=== PATIENT | male | born 1960 | race Caucasian/White ===

== ENCOUNTER 2017-09-15 13:14 | Emergency (ER) | payer SELFPAY ==
[~2017-09-15] VITALS: Ht 175.2 cm; Wt 83.9 kg
[~2017-09-15 13:14] MED LIST: KEFLEX500 MG PO; MOTRIN800 MG PO
[2017-09-15 13:45] LABS: BASO % 0.5 % (0.0-1.0); EOS # 0.1 10*3/uL (0.0-0.4); EOS % 0.6 % (1.0-4.0); HEMATOCRIT 40.9 % (42.0-52.0); HEMOGLOBIN 14.1 g/dl (14.0-18.0); LYMPH # 0.9 10*3/uL (1.3-4.4); LYMPH % 10.9 % (27.0-41.0); MEAN CELL VOLUME 99.8 fl (80.0-94.0); MEAN CORPUSCULAR HGB 34.4 pg (27.0-31.0); MEAN CORPUSCULAR HGB CONC 34.5 g/dl (33.0-37.0); MEAN PLATELET VOLUME 10.6 fl (9.6-12.3); MONO # 0.6 10*3/uL (0.1-1.0); MONO % 7.9 % (3.0-9.0); NEUT # 6.4 10*3/uL (2.3-7.9); NEUT % 79.7 % (47.0-73.0); PLATELET COUNT AUTOMATED 177 10*3/uL (130-400); RED CELL DISTRI WIDTH 12.4 % (0-14.5)
[2017-09-15 13:58] LABS: ALBUMIN 2.6 gm/dl (3.1-4.5); ALKALINE PHOSPHATASE 70 U/L (45-117); BUN 14 mg/dl (7-24); CHLORIDE 98 mmol/L (98-107); CREATININE 1.04 mg/dL (0.70-1.30); POTASSIUM 4.3 mmol/L (3.5-5.1); SGOT/AST 39 IU/L (3-35); SGPT/ALT 42 U/L (12-78); SODIUM 135 mmol/L (136-145); TOTAL PROTEIN 7.5 gm/dL (6.4-8.2)
[2017-09-15] MEDS ORDERED: ZITHROMAX250 MG PO (14:52)
[2017-09-15] MEDS ORDERED: ROBITUSSIN DM 105 ML PO (14:52)
[2017-09-15] MEDS ORDERED: PREDNISONE10 MG PO (14:52)
== END 2017-09-15 14:58 | disposition home or self-care (01) ==
LOC: ED 13:14
PROVIDERS: Nurse Practitioner Family
DX: J18.9 Pneumonia, unspecified organism (principal); F17.200 Nicotine dependence, unspecified, uncomplicated; F10.20 Alcohol dependence, uncomplicated; J06.9 Acute upper respiratory infection, unspecified

== ENCOUNTER 2017-10-08 10:08 | Emergency (ER) | payer SELFPAY ==
[~2017-10-08] VITALS: Ht 175.2 cm; Wt 81.6 kg
--- NOTE | ~2017-10-08 | EKG ---
[place], [place] ELECTROCARDIOGRAM REPORT NAME: SHIRIN SCHREIBER UNIT #: [id number] ROOM: DOCTOR: LIVIA ALDRICH MD BIRTHDATE: [birth year] DOS: 10/08/2017 TIME: 1051 hours. Normal sinus rhythm at 91 beats per minute. Poor R-wave progression is noted. Left ventricular hypertrophy with repolarization abnormality. Possible lateral wall ischemia. An abnormal ECG. No previous tracing is available for comparison. LIVIA ALDRICH MD CM:EKGRPT:ELECTROCARDIOGRAM REPORT [id number] LIVIA ALDRICH MD
[~2017-10-08 10:08] MED LIST changes: +PREDNISONE10 MG PO; +ROBITUSSIN DM 105 ML PO; +ZITHROMAX250 MG PO
[2017-10-08 10:38] LABS: BASO % 0.6 % (0.0-1.0); EOS # 0.3 10*3/uL (0.0-0.4); EOS % 4.5 % (1.0-4.0); HEMATOCRIT 43.7 % (42.0-52.0); HEMOGLOBIN 14.3 g/dl (14.0-18.0); LYMPH # 1.4 10*3/uL (1.3-4.4); LYMPH % 20.7 % (27.0-41.0); MEAN CELL VOLUME 101.2 fl (80.0-94.0); MEAN CORPUSCULAR HGB 33.1 pg (27.0-31.0); MEAN CORPUSCULAR HGB CONC 32.7 g/dl (33.0-37.0); MEAN PLATELET VOLUME 9.8 fl (9.6-12.3); MONO # 0.5 10*3/uL (0.1-1.0); MONO % 6.7 % (3.0-9.0); NEUT # 4.6 10*3/uL (2.3-7.9); NEUT % 67.2 % (47.0-73.0); PLATELET COUNT AUTOMATED 202 10*3/uL (130-400); RED BLOOD COUNT 4.32 10*6/uL (4.50-5.90); RED CELL DISTRI WIDTH 12.7 % (0-14.5); WHITE BLOOD COUNT 6.8 10*3/uL (4.8-10.8)
[2017-10-08 10:52] LABS: ALBUMIN 3.2 gm/dl (3.1-4.5); ALKALINE PHOSPHATASE 105 U/L (45-117); BUN 12 mg/dl (7-24); CHLORIDE 108 mmol/L (98-107); CREATININE 0.95 mg/dL (0.70-1.30); POTASSIUM 4.5 mmol/L (3.5-5.1); SGOT/AST 18 IU/L (3-35); SGPT/ALT 27 U/L (12-78); SODIUM 143 mmol/L (136-145); TOTAL PROTEIN 7.3 gm/dL (6.4-8.2)
[2017-10-08] MEDS ORDERED: ADALAT10 MG PO (11:20)
== END 2017-10-08 12:34 | disposition home or self-care (01) ==
LOC: ED 10:08
PROVIDERS: Nurse Practitioner Family
DX: I73.00 Raynaud's syndrome without gangrene (principal); R03.0 Elevated blood-pressure reading, without diagnosis of hypertension; F17.200 Nicotine dependence, unspecified, uncomplicated; Z79.899 Other long term (current) drug therapy

== ENCOUNTER 2017-10-11 15:33 | Emergency (ER) | payer SELFPAY ==
[~2017-10-11] VITALS: Ht 175.2 cm; Wt 81.6 kg
[~2017-10-11 15:33] MED LIST changes: +ADALAT10 MG PO
[2017-10-11] MEDS ORDERED: ASPIRIN325 MG PO (17:48)
[2017-10-11] MEDS ORDERED: NIFEDIPINE ER60 M1 PO (17:48)
== END 2017-10-11 18:28 | disposition home or self-care (01) ==
LOC: EDSTATUS 15:33 → ED 15:34
DX: I73.89 Other specified peripheral vascular diseases (principal); F17.200 Nicotine dependence, unspecified, uncomplicated

== ENCOUNTER 2018-04-11 16:56 | Emergency (ER) | payer BC ==
[~2018-04-11] VITALS: Ht 175.2 cm; Wt 83.9 kg
[~2018-04-11 16:56] MED LIST changes: +ASPIRIN325 MG PO; +NIFEDIPINE ER60 M1 PO
[2018-04-11] MEDS ORDERED: NORCO 10-325 T1 EACH PO (17:33)
[2018-04-11] MEDS ORDERED: NIFEDIPINE30 MG PO (17:33)
== END 2018-04-11 17:25 | disposition home or self-care (01) ==
LOC: ED 16:56
DX: I73.89 Other specified peripheral vascular diseases (principal)

== ENCOUNTER 2019-05-21 11:20 | Emergency (ER) | payer SELFPAY ==
[~2019-05-21] VITALS: Wt 83.9 kg
[~2019-05-21 11:20] MED LIST changes: +CYCLOBENZAPRINE5 M3 PO; +KETOROLAC10 MG PO; +NIFEDIPINE30 MG PO; +NORCO 10-325 T1 EACH PO
[2019-05-21] MEDS ORDERED: ZITHROMAX250 MG PO (13:42)
[2019-05-21] MEDS ORDERED: PROAIR HFA8.5 GM INH (13:42)
[2019-05-21] MEDS ORDERED: PREDNISONE50 MG PO (13:42)
== END 2019-05-21 13:43 | disposition home or self-care (01) ==
LOC: ED 11:20
DX: J20.9 Acute bronchitis, unspecified (principal); F17.200 Nicotine dependence, unspecified, uncomplicated

== ENCOUNTER 2019-11-07 13:24 | Emergency (ER) | payer SELFPAY ==
[~2019-11-07] VITALS: Ht 175.2 cm; Wt 83.9 kg
[~2019-11-07 13:24] MED LIST changes: +PREDNISONE50 MG PO; +PROAIR HFA8.5 GM INH
[2019-11-07] MEDS ORDERED: ROBAXIN-750750 MG PO (16:00)
[2019-11-07] MEDS ORDERED: IBUPROFEN600 MG PO (16:00)
== END 2019-11-07 16:02 | disposition home or self-care (01) ==
LOC: ED 13:24
DX: M43.6 Torticollis (principal); F17.200 Nicotine dependence, unspecified, uncomplicated

== ENCOUNTER 2021-04-22 12:01 | Emergency (ER) | payer OTHER ==
[~2021-04-22] VITALS: Ht 172.7 cm; Wt 83.9 kg
[~2021-04-22 12:01] MED LIST changes: +IBUPROFEN600 MG PO; +ROBAXIN-750750 MG PO
[2021-04-22] MEDS ORDERED: MEDROL DOSEPAK4 MG PO (14:25)
== END 2021-04-22 14:29 | disposition home or self-care (01) ==
LOC: ED 12:01
DX: M54.2 Cervicalgia (principal); Z79.899 Other long term (current) drug therapy

== ENCOUNTER → 2021-12-04 | Outpatient (CLI) | payer OTHER ==
[~2021-12-04] MED LIST changes: +MEDROL DOSEPAK4 MG PO
== END | disposition home or self-care (01) ==
LOC: COVID19 15:38
PROVIDERS: ATTEND Family Medicine
DX: Z11.52 Encounter for screening for COVID-19 (principal)

== ENCOUNTER → 2021-12-10 | Outpatient (CLI) | payer OTHER | END | disposition home or self-care (01) | LOC: COVID19 15:11 | PROVIDERS: ATTEND Internal Medicine | DX: Z20.822 Contact with and (suspected) exposure to COVID-19 (principal) ==

== ENCOUNTER 2021-12-11 17:53 | Emergency (ER) | payer BC, OTHER ==
[~2021-12-11] VITALS: Ht 175.2 cm; Wt 81.6 kg
== END 2021-12-11 20:07 | disposition home or self-care (01) ==
LOC: ED 17:53
DX: S40.021A Contusion of right upper arm, initial encounter (principal); S51.811A Laceration without foreign body of right forearm, initial encounter; W18.39XA Other fall on same level, initial encounter; Y93.89 Activity, other specified; Y92.89 Other specified places as the place of occurrence of the external cause; Y99.8 Other external cause status

== ENCOUNTER → 2025-01-14 | Outpatient (CLI) | payer OTHER ==
[~2025-01-14] MED LIST changes: +LISINOPRIL40 MG PO; +VIBRA-TAB100 MG PO
== END | disposition home or self-care (01) ==
LOC: RESCLI 05:04
PROVIDERS: ATTEND Internal Medicine
DX: I10 Essential (primary) hypertension (principal); J44.9 Chronic obstructive pulmonary disease, unspecified; E55.9 Vitamin D deficiency, unspecified; I25.10 Atherosclerotic heart disease of native coronary artery without angina pectoris; Z79.899 Other long term (current) drug therapy

== ENCOUNTER → 2025-02-27 | Outpatient (CLI) | payer OTHER | END | disposition home or self-care (01) | LOC: RESCLI 02:14 | PROVIDERS: ATTEND Internal Medicine | DX: I10 Essential (primary) hypertension (principal); J44.9 Chronic obstructive pulmonary disease, unspecified; E55.9 Vitamin D deficiency, unspecified; I25.10 Atherosclerotic heart disease of native coronary artery without angina pectoris; Z79.899 Other long term (current) drug therapy; Z79.82 Long term (current) use of aspirin ==

== ENCOUNTER → 2025-06-10 | Outpatient (CLI) | payer OTHER | END | disposition home or self-care (01) | LOC: RESCLI 13:27 | PROVIDERS: ATTEND Internal Medicine | DX: I10 Essential (primary) hypertension (principal); J44.9 Chronic obstructive pulmonary disease, unspecified; Z13.6 Encounter for screening for cardiovascular disorders ==